=== PATIENT | male | born 1980 | race Two or more races ===

== ENCOUNTER 2019-02-26 10:12 | Emergency (ER) | payer OTHER ==
[~2019-02-26] VITALS: Ht 180.3 cm; Wt 81.6 kg
[2019-02-26] MEDS ORDERED: Cephalexin 500mg cap ORAL ONE (10:30)
[2019-02-26] MEDS ORDERED: Bactrim-DS 1 tab ORAL ONE (10:30)
--- NOTE | 2019-02-26 10:31 | Emergency Room Report ---
History of Present Illness General Chief Complaint: Skin Rash/Abscess Source: Patient Present Illness HPI 38-year-old male presents with right quadriceps pain x2 days, he states he was picking at a pimple on his right thigh a possible ingrown hair, patient endorses sticking a safety pin in it, no fever no chills, no chest pain, no abdominal pain, he endorses right thigh pain that is aching nature aggravated with movement alleviated with rest he states its moderate pain Allergies: Coded Allergies: Kiwi (Verified Allergy, Severe, Hives, 02/26/19) Patient History Past Medical History: see triage record Social History: Reports: alcohol use - Social Reviewed Nursing Documentation: PMH: Agreed; PSxH: Agreed Nursing Documentation-PMH Past Medical History: No Stated History Review of Systems Constitutional: Denies: chills, fever Eye: Denies: blurred vision, double vision ENT: Denies: throat pain, nasal discharge Respiratory: Denies: cough, shortness of breath Cardiovascular: Denies: chest pain, palpitations Gastrointestinal: Denies: abdominal pain, diarrhea, nausea, vomiting Genitourinary: Denies: dysuria, pain Musculoskeletal: Reports: muscle pain; Denies: back pain Skin: Reports: rash; Denies: lesions Neurological: Denies: headache, focal weakness Hematologic/Lymphatic: Denies: easy bleeding, easy bruising All Other Systems: negative except mentioned in HPI Physical Exam Vital Signs Date Time Temp Pulse Resp B/P (MAP) Pulse Ox O2 Delivery O2 Flow Rate FiO2 02/26/19 10:14 98.4 83 20 133/89 (104) 98 Room Air Sp02 EP Interpretation: reviewed, normal General Appearance: well appearing, no apparent distress, alert Head: normocephalic, atraumatic Eyes: bilateral eye PERRL, bilateral eye EOMI ENT: uvula midline, moist mucus membranes Neck: supple, thyroid normal, supple/symm/no masses Respiratory: lungs clear, no respiratory distress, no retraction, no accessory muscle use Cardiovascular #1: normal peripheral pulses, regular rate, rhythm, no edema, no gallop, no murmur Gastrointestinal: non tender, soft, no guarding, no rebound Musculoskeletal: normal inspection Neurologic: alert, oriented x3 Psychiatric: mood/affect normal Skin: warm/dry, other - Right thigh: 5 x 5 cm erythematous area, with central lesion, punctate, no pus expressed, hyperemia around surrounding skin Medical Decision Making Diagnostic Impression: Primary Impression: Cellulitis ER Course Cellulitis of the right thigh, will provide patient with antibiotic here, prescription, no abscess to drain, Area was marked, patient counseled if he worsens to return to the ED, disposition home Last Vital Signs Date Time Temp Pulse Resp B/P (MAP) Pulse Ox O2 Delivery O2 Flow Rate FiO2 02/26/19 10:14 98.4 83 20 133/89 (104) 98 Room Air Disposition: HOME, SELF-CARE Scripts Cephalexin* (CEPHALEXIN*) 500 Mg Tablet 500 MG ORAL EVERY 6 HOURS, #40 CAP Prov: Luis Fernando Medina MD 02/26/19 Trimethoprim/Sulfamethoxazole 160/800* (BACTRIM DS TABLET*) 1 Each Tablet 1 TAB ORAL Q12H, #20 TAB 0 Refills Prov: Luis Fernando Medina MD 02/26/19 Patient Instructions: Cellulitis, [id number] Additional Instructions: The patient was provided with discharge instructions, notified to follow-up with a primary care doctor and or specialist in the next 24-48 hours, and to return to the ED if they have worsening of their symptoms. Please note that this report is being documented using [employer] technology. This can lead to erroneous entry secondary to incorrect interpretation by the dictating instrument. Luis Fernando Medina MD Feb 26, 2019 10:31
[2019-02-26] MEDS ORDERED: CEPHALEXIN500 M1 ORAL (10:37)
[2019-02-26] MEDS ORDERED: BACTRIM DS TAB1 EAC1 ORAL (10:37)
[2019-02-26 10:52] VITALS: BP 133/89
--- NOTE | 2019-02-26 10:54 | NUR ---
ED Nurse Note: ermd eval done pt medicated no reactions noted.
[2019-02-26 10:57] VITALS: BP 133/89
--- NOTE | 2019-02-26 10:57 | NUR ---
ER DISCHARGE NOTE: Patient is cleared to be discharged per ERMD, pt is aox4, on room air, with stable vital signs. pt was given dc and prescription instructions, pt was able to verbalize understanding, pt id band and iv site removed without complications. pt is able to ambulate with steady gait. pt took all belongings.
== END 2019-02-26 10:57 | disposition home or self-care (01) ==
LOC: EMR 10:50
DX: L03.115 Cellulitis of right lower limb (principal)
CPT/HCPCS: 99282